=== PATIENT | female | born 1990 | race African-American/Black ===

== ENCOUNTER 2017-11-25 16:20 | Emergency (ER) | payer OTHER ==
[2017-11-25] MEDS ORDERED: HYDROcodone/Acetaminophen 10/325 mg Tablet ONE (17:29)
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
== END 2017-11-25 19:12 | disposition home or self-care (01) ==
LOC: ERS 16:20
DX: M54.5 Low back pain (principal); V49.9XXA Car occupant (driver) (passenger) injured in unspecified traffic accident, initial encounter
CPT/HCPCS: 72100